=== PATIENT | female | born 1935 | race Two or more races ===

== ENCOUNTER 2024-02-03 10:33 | Emergency (ER) | payer OTHER ==
[~2024-02-03] VITALS: Ht 162.6 cm; Wt 68.0 kg
[2024-02-03] MEDS ORDERED: SYNTHROID75 MCG PO (10:38)
[2024-02-03] MEDS ORDERED: COZAAR50 MG PO (10:38)
[2024-02-03] MEDS ORDERED: ADULT LOW DOSE81 M1 PO (10:38)
[2024-02-03] MEDS ORDERED: KETOROLAC TROMETHAMINE 30 MG VIAL IV ONE (10:45)
[2024-02-03] MEDS ORDERED: ORPHENADRINE CITRATE 30 MG/ML AMPUL IM ONE (10:45)
== END 2024-02-03 12:27 | disposition home or self-care (01) ==
LOC: ER 10:33
DX: M54.50 Low back pain, unspecified (principal); I10 Essential (primary) hypertension; E03.8 Other specified hypothyroidism
CPT/HCPCS: 72131; 96365; 96372; 99284; J1885; J2360